=== PATIENT | male | born 1955 | race Caucasian/White ===

== ENCOUNTER 2017-02-10 04:40 | Emergency (ER) | payer OTHER ==
[~2017-02-10] VITALS: Ht 170.2 cm; Wt 102.7 kg
[~2017-02-10 04:40] MED LIST: BENTYL10 MG PO; COLACE100 MG PO
[2017-02-10 06:34] LABS: HEMATOCRIT 45.9 % (38.0-50.0); MCH 28.6 PG (29.0-34.0); MCHC 34.2 G/DL (30.0-36.0); MCV 83.8 FL (86-99); MEAN PLAT.VOLUME 10.1 uM^3 (9.0-12.4); PLATELET COUNT 240 K/uL (156-360); RBC DIS.WIDTH-CV 12.9 % (11.8-14.6); RBC DIS.WIDTH-SD 39.1 % (39-53); RED BLOOD COUNT 5.48 M/uL (4.00-5.50); WHITE BLOOD COUNT 12.2 K/uL (4.1-10.2)
[2017-02-10 06:46] LABS: CHLORIDE 104 mEq/L (99-109); POTASSIUM 3.9 mEq/L (3.7-5.4); SODIUM 135 mEq/L (136-147)
[2017-02-10 06:48] LABS: GLUCOSE 410 mg/dL (70-99)
[2017-02-10] MEDS ORDERED: BYDUREON P2 MG/0.65 SC (06:48)
[2017-02-10 06:49] LABS: ANION GAP 15 MEQ/L (2-14)
[2017-02-10] MEDS ORDERED: GLIPIZIDE XL10 MG PO (06:49)
[2017-02-10] MEDS ORDERED: METFORMIN HCL500 MG PO (06:49)
[2017-02-10] MEDS ORDERED: PROZAC40 MG PO (06:50)
[2017-02-10 06:51] LABS: GFR ESTIMATE (CALCULATED) > 59 mL/min/
[2017-02-10 06:52] LABS: UREA NITROGEN (BUN) 9 mg/dL (9-23)
[2017-02-10 07:40] LABS: ADD MIUA? NO; BILIRUBIN NEGATIVE; BLOOD NEGATIVE; COLOR STRAW ((YELLOW)); GLUCOSE (STRIP) >=500; KETONES 20; LEUKOCYTES NEGATIVE; NITRITE NEGATIVE; PROTEIN (STRIP) NEGATIVE; SPECIFIC GRAVITY 1.016 (1.000-1.030); UCUL ADDED? NO; UROBILINOGEN 0.2 MG/DL (0.2-1.0)
[2017-02-10 08:13] LABS: POINT-OF-CARE METER ID UU13113778
[2017-02-10] MEDS ORDERED: PERCOCET 5/31 TABLET PO (08:36)
[2017-02-10] MEDS ORDERED: ZOFRAN ODT4 MG PO (08:36)
[2017-02-10 08:46] VITALS: BP 158/89
[2017-02-10] MEDS ORDERED: FLOMAX0.4 MG PO (16:35)
[2017-02-10] MEDS ORDERED: LORTAB 5-325 M1 EACH PO (16:35)
[2017-02-10] MEDS ORDERED: NAPROSYN500 MG PO (16:35)
== END 2017-02-10 08:48 | disposition home or self-care (01) ==
LOC: EME 04:40
PROVIDERS: Emergency Medicine
DX: N13.2 Hydronephrosis with renal and ureteral calculous obstruction (principal); K80.20 Calculus of gallbladder without cholecystitis without obstruction; K76.0 Fatty (change of) liver, not elsewhere classified; E11.9 Type 2 diabetes mellitus without complications; Z79.84 Long term (current) use of oral hypoglycemic drugs; Z87.442 Personal history of urinary calculi
CPT/HCPCS: 74176; 80048; 81003; 82948; 85027; 99281; 99285; J1885; J2270; J2405; J7030

== ENCOUNTER 2017-02-10 13:49 | Emergency (ER) | payer OTHER ==
[~2017-02-10] VITALS: Ht 170.2 cm; Wt 103.1 kg
[~2017-02-10 13:49] MED LIST changes: +BYDUREON P2 MG/0.65 SC; +GLIPIZIDE XL10 MG PO; +METFORMIN HCL500 MG PO; +PERCOCET 5/31 TABLET PO; +PROZAC40 MG PO; +ZOFRAN ODT4 MG PO
[2017-02-10] MEDS ORDERED: NAPROSYN500 MG PO (16:35)
[2017-02-10] MEDS ORDERED: LORTAB 5-325 M1 EACH PO (16:35)
[2017-02-10] MEDS ORDERED: FLOMAX0.4 MG PO (16:35)
[2017-02-10 16:48] VITALS: BP 135/74
== END 2017-02-10 17:06 | disposition home or self-care (01) ==
LOC: EME 13:49
DX: N20.0 Calculus of kidney (principal); E11.9 Type 2 diabetes mellitus without complications; Z87.442 Personal history of urinary calculi; Z79.84 Long term (current) use of oral hypoglycemic drugs
CPT/HCPCS: 99281; 99284; J3010